=== PATIENT | male | born 1970 | race Two or more races ===

== ENCOUNTER 2017-06-03 23:26 | Emergency (ER) | payer OTHER ==
[~2017-06-03] VITALS: Ht 167.6 cm; Wt 119.8 kg
[2017-06-03] MEDS ORDERED: TEGRETOL200 MG PO (23:38)
[2017-06-03] MEDS ORDERED: ZOLOFT100 MG PO (23:38)
--- NOTE | 2017-06-04 21:36 | EKG ---
[facility] [address] [facility] [place] [address] Signed Sinus rhythm with occasional premature ventricular complexes Right bundle branch block Possible Inferior infarct , age undetermined Abnormal ECG No previous ECGs available Confirmed by MADY WONG MD ([id number]) on 06/04/2017 9:35:42 PM Electronically Signed By: MADY WONG MD 06/04/17 2136 PATIENT NAME: DYLANOSCAR JR Electrocardiogram DATE OF : 66 PHYSICIAN: MADY WONG MD REPORT #: [id number] REPORT IS CONFIDENTIAL AND NOT TO BE RELEASED WITHOUT AUTHORIZATION
== END 2017-06-04 00:54 | disposition home or self-care (01) ==
LOC: ED 23:26
DX: R07.9 Chest pain, unspecified (principal); Z88.8 Allergy status to other drugs, medicaments and biological substances; Z79.899 Other long term (current) drug therapy
CPT/HCPCS: 71045; 80053; 84484; 85025; 93005; 93010; 99284